=== PATIENT | female | born 1990 | race American Indian/Alaskan Native ===

== ENCOUNTER 2016-05-05 10:28 | Emergency (ER) | payer SELFPAY ==
[2016-05-05 11:07] VITALS: BP 103/69
--- NOTE | 2016-05-05 12:16 | Emergency Department Report ---
- General Chief Complaint: Upper Respiratory Infection Stated Complaint: FLU SYMPTOMS/COUGHING BLOOD Time Seen by Provider: 05/05/16 12:05 Source: patient Mode of arrival: Ambulatory Limitations: No Limitations - History of Present Illness Initial Comments: 26-year-old female past medical history none presents with complaint of runny nose sore throat and body aches minor nonproductive cough and subjective fever chills approximately 3 days. Patient states she feels very achy, has had the flu before and feels like she has the flu now. Patient denies any vomiting or nausea no dysuria subjective fever chills patient currently afebrile. Patient awake alert and oriented 3 not in acute distress. Denies any earache. States she has multiple sick contacts at home w/ similar symptoms. Denies any chest pain but does complain of some upper airway congestion. MD Complaint: fever, cough, sore throat, rhinorrhea, nasal congestion Onset/Timin -: days(s) Consistency: constant Improves With: nothing Worsens With: nothing Context: sick contacts Associated Symptoms: fever, chills, myalgias, rhinorrhea, nasal congestion, sore throat, cough - Related Data Previous Rx's Medication Instructions Recorded Last Taken Type Amoxicillin [Trimox CAP] 500 mg PO Q8H #30 capsule 01/16/15 Unknown Rx metroNIDAZOLE [Flagyl] 500 mg PO Q12HR #20 tab 03/28/15 Unknown Rx Ibuprofen [Motrin] 600 mg PO Q8H PRN #30 tablet 05/05/16 Unknown Rx Oseltamivir [Tamiflu] 75 mg PO BID #10 cap 05/05/16 Unknown Rx Phenylephrine/Dm/Acetaminop/GG 10 ml PO Q6H PRN #1 bottle 05/05/16 Unknown Rx [Mucinex Ykdv-Xiy-Eydijtcwwc Lq] Allergies Allergy/AdvReac Type Severity Reaction Status Date / Time No Known Allergies Allergy Verified 01/15/15 23:13 ED Review of Systems ROS: Stated complaint: FLU SYMPTOMS/COUGHING BLOOD Other details as noted in HPI Constitutional: denies: chills, fever Eyes: denies: eye pain, eye discharge, vision change ENT: throat pain. denies: ear pain Respiratory: cough. denies: shortness of breath, wheezing Cardiovascular: denies: chest pain, palpitations Endocrine: no symptoms reported Gastrointestinal: denies: abdominal pain, nausea, diarrhea Genitourinary: denies: urgency, dysuria, discharge Musculoskeletal: denies: back pain, joint swelling, arthralgia Skin: denies: rash, lesions Neurological: denies: headache, weakness, paresthesias Psychiatric: denies: anxiety, depression Hematological/Lymphatic: denies: easy bleeding, easy bruising ED Past Medical Hx - Past Medical History Additional medical history: has had 3 abortions,one miscarriage anemia - Social History Smoking Status: Never Smoker Substance Use Type: Alcohol - Medications Home Medications: Home Medications Medication Instructions Recorded Confirmed Last Taken Type Amoxicillin [Trimox CAP] 500 mg PO Q8H #30 capsule 01/16/15 Unknown Rx metroNIDAZOLE [Flagyl] 500 mg PO Q12HR #20 tab 03/28/15 Unknown Rx Ibuprofen [Motrin] 600 mg PO Q8H PRN #30 tablet 05/05/16 Unknown Rx Oseltamivir [Tamiflu] 75 mg PO BID #10 cap 05/05/16 Unknown Rx Phenylephrine/Dm/Acetaminop/GG 10 ml PO Q6H PRN #1 bottle 05/05/16 Unknown Rx [Mucinex Yizg-Cqe-Aqugtisugq Lq] ED Physical Exam - General Limitations: No Limitations General appearance: alert, in no apparent distress - Head Head exam: Present: atraumatic, normocephalic - Eye Eye exam: Present: normal appearance, PERRL, EOMI - ENT ENT exam: Present: normal exam, mucous membranes moist, TM's normal bilaterally - Neck Neck exam: Present: normal inspection - Respiratory Respiratory exam: Present: normal lung sounds bilaterally. Absent: respiratory distress - Cardiovascular Cardiovascular Exam: Present: regular rate, normal rhythm. Absent: systolic murmur, diastolic murmur, rubs, gallop - GI/Abdominal GI/Abdominal exam: Present: soft, normal bowel sounds - Extremities Exam Extremities exam: Present: normal inspection, full ROM - Back Exam Back exam: Present: normal inspection - Neurological Exam Neurological exam: Present: alert, oriented X3, CN II-XII intact, normal gait - Psychiatric Psychiatric exam: Present: normal affect, normal mood - Skin Skin exam: Present: warm, dry, intact, normal color. Absent: rash ED Course Vital Signs 05/05/16 05/05/16 11:05 12:27 Temperature 98.8 F 97.8 F Pulse Rate 91 H Respiratory 16 Rate Blood Pressure 103/69 O2 Sat by Pulse 100 Oximetry ED Medical Decision Making - Medical Decision Making A/P: Flulike illness 1-patient has symptoms consistent with influenza. Patient has no rhonchi or wheezing on auscultation of lungs, no evidence of pharyngitis or tonsillitis no exudates in throat 2- [facility] Criteria 0 points1% - 2.5% likelihood of strep No further testing nor antibiotics. 3-will treat patient empirically for the flu with Tamiflu. Albuterol inhaler when necessary Motrin 600 when necessary throat lozenges when necessary use and Mucinex when necessary 4-referral to primary care doctor she does not currently have one 5-I advised patient to return to the ED for any productive cough chest pain and inability to tolerate by mouth fevers persistently above 101 Fahrenheit. Patient understood these instructions. Critical care attestation.: If time is entered above; I have spent that time in minutes in the direct care of this critically ill patient, excluding procedure time. ED Disposition Clinical Impression: Flu-like symptoms Disposition: DISCHARGED TO HOME OR SELFCARE Is pt being admited?: No Does the pt Need Aspirin: No Condition: Stable Instructions: Influenza (ED), Viral Syndrome (ED), Cold Symptoms (ED) Prescriptions: Ibuprofen [Motrin] 600 mg PO Q8H PRN #30 tablet PRN Reason: Pain Oseltamivir [Tamiflu] 75 mg PO BID #10 cap Phenylephrine/Dm/Acetaminop/GG [Mucinex Esoq-Ypb-Bycwgbnogh Lq] 10 ml PO Q6H PRN #1 bottle PRN Reason: Cough Referrals: NAKUL BRYAN MD [Primary Care Provider] - 3-5 Days [facility] [Outside] - 3-5 Days NOELLE RUIZ JR, MD [Staff Physician] - 3-5 Days Forms: Accompanied Note, Work/School Release Form(ED) Time of Disposition: 12:32
== END 2016-05-05 12:43 | disposition home or self-care (01) ==
LOC: ED 10:28
DX: J11.1 Influenza due to unidentified influenza virus with other respiratory manifestations (principal)
CPT/HCPCS: 99281

== ENCOUNTER 2016-07-05 09:31 | Emergency (ER) | payer SELFPAY ==
[2016-07-05 10:03] VITALS: BP 116/75
[2016-07-05 10:41] LABS: Basophils % (Auto) 0.6 % (0.0-1.8); Eosinophils % (Auto) 1.3 % (0.0-4.3); Hematocrit 39.3 % (30.3-42.9); Hemoglobin 12.6 gm/dl (10.1-14.3); Mean Corpuscular HGB Conc 32 % (30-34); Mean Corpuscular Hemoglobin 28 pg (28-32); Mean Corpuscular Volume 86 fl (79-97); Platelet Count 249 K/mm3 (140-440); Red Blood Count 4.56 M/mm3 (3.65-5.03); Red Cell Distribution Width 13.9 % (13.2-15.2)
[2016-07-05 10:56] LABS: Alanine Aminotransferase 9 units/L (7-56); Albumin 4.1 g/dL (3.9-5); Albumin/Globulin Ratio 1.4 %; Alkaline Phosphatase 63 units/L (35-129); Anion Gap 16 mmol/L; BUN/Creatinine Ratio 21.66; Bilirubin,Total 0.2 mg/dL (0.1-1.2); Blood Urea Nitrogen 13 mg/dL (7-17); Calcium 9.2 mg/dL (8.4-10.2); Carbon Dioxide 25 mmol/L (22-30); Chloride 102.2 mmol/L (98-107); Glucose 101 mg/dL (65-100); Lipase 33 units/L (13-60); Potassium 4.6 mmol/L (3.6-5.0); Sodium 139 mmol/L (137-145); Total Protein 7.1 g/dL (6.3-8.2)
[2016-07-05 12:55] LABS: Bacteria,Urine 1+ /HPF (Negative); Bilirubin,Urine NEG (Negative); Blood,Urine NEG (Negative); Ketones,Urine NEG (Negative); Leukocyte Esterase,Urine TR (Negative); Mucus,Urine FEW /HPF; Nitrite,Urine NEG (Negative); Protein,Urine <15 mg/dL mg/dL (Negative); Urobilinogen,Urine < 2.0 mg/dL (<2.0)
--- NOTE | 2016-07-07 15:19 | ED Elopement Review ---
ED Pt Elopement review - Results review Lab results: Laboratory Tests 07/05/16 07/05/16 07/05/16 10:21 10:21 11:22 WBC 8.0 RBC 4.56 Hgb 12.6 Hct 39.3 MCV 86 MCH 28 MCHC 32 RDW 13.9 Plt Count 249 Lymph % (Auto) 34.6 [place] % (Auto) 6.6 Eos % (Auto) 1.3 Baso % (Auto) 0.6 Lymph # 2.8 [place] # 0.5 Eos # 0.1 Baso # 0.0 Seg Neutrophils % 56.9 Seg Neutrophils # 4.5 Sodium 139 Potassium 4.6 Chloride 102.2 Carbon Dioxide 25 Anion Gap 16 BUN 13 Creatinine 0.6 L Estimated GFR > 60 BUN/Creatinine Ratio 21.66 Glucose 101 H Calcium 9.2 Total Bilirubin 0.2 AST 13 ALT 9 Alkaline Phosphatase 63 Total Protein 7.1 Albumin 4.1 Albumin/Globulin Ratio 1.4 Lipase 33 Urine Color Yellow Urine Turbidity Clear Urine pH 7.0 Ur Specific [place] 1.023 Urine Protein <15 mg/dl Urine Glucose (UA) Neg Urine Ketones Neg Urine Blood Neg Urine Nitrite Neg Urine Bilirubin Neg Urine Urobilinogen < 2.0 Ur Leukocyte Esterase Tr Urine WBC (Auto) 1.0 Urine RBC (Auto) 3.0 U Epithel Cells (Auto) 6.0 Urine Bacteria (Auto) 1+ Urine Mucus Few Urine HCG, Qual Negative - Call Back decision Pt Call Back Decision: No action required
== END 2016-07-05 14:34 | disposition left against medical advice (07) ==
LOC: ED 09:31
DX: R10.9 Unspecified abdominal pain (principal); R11.0 Nausea; R30.0 Dysuria; Z53.21 Procedure and treatment not carried out due to patient leaving prior to being seen by health care provider
CPT/HCPCS: 36415; 80053; 81001; 81025; 83690; 85025